=== PATIENT | female | born 1945 | race Caucasian/White ===

== ENCOUNTER 2016-10-24 10:29 | Emergency (ER) | payer MEDICARE, OTHER ==
[~2016-10-24] VITALS: Ht 154.9 cm; Wt 80.9 kg
[~2016-10-24 10:29] MED LIST: ALDACTONE 25MG25 M1 PO; ASPIRIN 81M81 MG/TA2 PO; CELEXA 20MG20 MG/TAB PO; COZAAR100 MG PO; EFFEXOR-XR150 MG PO; FISH OIL500 MG PO; LEVOXYL0.075 MG PO; PREDNISONE10 MG PO; PRIL40 PO; PROAIR HFA0.09 MG/AC IH; TEMOVATE0.05% TP; VERAMYST27.5 MCG/A NS; ZITHROMAX Z PA250 MG PO
[2016-10-24 10:37] VITALS: BP 147/72; PULSE 77; TEMP 98.6
[2016-10-24 11:36] LABS: BASO # 0.1 (0.0-0.2); BASO % 0.7 % (0.0-2.0); EOS # 0.2 (0.0-0.7); GRAN # 4.5 (1.4-6.5); GRAN % 67.3 % (42.2-75.2); HEMATOCRIT 41.5 % (37.0-47.0); HEMOGLOBIN 13.2 g/dl (12.5-16.0); LYMPH # 1.4 (1.2-3.4); LYMPH % 20.8 % (20.0-51.0); MEAN CELL VOLUME 89 fl (80.0-100.0); MEAN CORPUSCULAR HEMOGLOBIN 28 pg (27.0-31.0); MEAN CORPUSCULAR HGB CONC 32 g/dl (33.0-37.0); MEAN PLATELET VOLUME 10.2 fl (7.4-10.4); MONO # 0.5 (0.1-0.6); MONO % 7.9 % (1.7-9.3); PLATELET COUNT 258 K/mm3 (130-400); RED BLOOD COUNT 4.67 M/mm3 (4.10-5.30); REDCELL DISTRIBUTION WIDTH-CV 12.8 % (11.5-14.5); WHITE BLOOD COUNT 6.7 K/mm3 (4.8-10.8)
[2016-10-24 11:46] LABS: ADJUSTED CALCIUM 9.5 mg/dL (8.4-10.2); ALBUMIN 4.5 gm/dL (3.5-5.0); BILIRUBIN,TOTAL 0.6 mg/dL (0.0-1.0); CALCIUM 9.9 mg/dL (8.4-10.2); CREATININE, serum 0.92 mg/dL (0.52-1.25); POTASSIUM 4.2 mmol/L (3.4-5.0); TOTAL PROTEIN 7.5 gm/dL (6.4-8.2)
[2016-10-24 11:53] LABS: PH 5 (5-8); SQUAMOUS EPITHELIAL 0-2 /hpf; URINE APPEARANCE Clear; URINE BACTERIA None Seen /hpf; URINE BILIRUBIN Negative (NEGATIVE); URINE BLOOD Negative (NEGATIVE); URINE COLOR Yellow; URINE GLUCOSE Negative (NEGATIVE); URINE KETONE Negative (NEGATIVE); URINE RBC 0-2 /hpf; URINE UROBILINOGEN Negative (NEGATIVE); URINE WBC 0-2 /hpf
[2016-10-24] MEDS ORDERED: NYSTATIN CREAM15 GM TP (13:15)
== END 2016-10-24 13:22 | disposition home or self-care (01) ==
LOC: COL.ER 10:29
PROVIDERS: Nurse Practitioner
DX: N76.0 Acute vaginitis (principal); I10 Essential (primary) hypertension; R30.0 Dysuria; R35.0 Frequency of micturition; Z87.442 Personal history of urinary calculi

== ENCOUNTER 2016-10-28 08:10 | Inpatient (IN) | payer MEDICARE, OTHER ==
[~2016-10-28] VITALS: Ht 154.9 cm; Wt 88.2 kg
[~2016-10-28 08:10] MED LIST changes: +NYSTATIN CREAM15 GM TP
[2016-10-28 09:31] LABS: HEMATOCRIT 41.9 % (37.0-47.0); HEMOGLOBIN 13.5 g/dl (12.5-16.0); MEAN CELL VOLUME 88 fl (80.0-100.0); MEAN CORPUSCULAR HEMOGLOBIN 28 pg (27.0-31.0); MEAN CORPUSCULAR HGB CONC 32 g/dl (33.0-37.0); MEAN PLATELET VOLUME 10.5 fl (7.4-10.4); PLATELET COUNT 250 K/mm3 (130-400); RED BLOOD COUNT 4.75 M/mm3 (4.10-5.30); WHITE BLOOD COUNT 16.2 K/mm3 (4.8-10.8)
[2016-10-28 09:33] LABS: INR 1.1 (0.8-3.0); PROTHROMBIN TIME 12.6 SECONDS (9.7-12.8)
[2016-10-28 09:38] LABS: ADD PATHOLOGY DIFF REVIEW NO
[2016-10-28 09:41] LABS: ADJUSTED CALCIUM 9.8 mg/dL (8.4-10.2); ALANINE AMINOTRANSFERASE 70 U/L (9-52); ALBUMIN 4.2 gm/dL (3.5-5.0); ALKALINE PHOSPHATASE 110 U/L (50-136); ANION GAP 12 mmol/L (7-16); BILIRUBIN,TOTAL 0.8 mg/dL (0.0-1.0); BLOOD UREA NITROGEN 15 mg/dL (7-17); C-REACTIVE PROTEIN 5.4 mg/dL (0.0-0.9); CARBON DIOXIDE 28 mmol/L (22-30); CHLORIDE 100 mmol/L (98-107); CREATININE, serum 1.03 mg/dL (0.52-1.25); GLUCOSE 120 mg/dL (74-106); LIPASE 69 U/L (23-300); POTASSIUM 4.2 mmol/L (3.4-5.0); SODIUM 139 mmol/L (137-145); TOTAL PROTEIN 7.1 gm/dL (6.4-8.2)
[2016-10-28 09:50] LABS: B-TYPE NATRIURETIC PEPTIDE 67 pg/mL (0-125)
[2016-10-28 09:53] LABS: TROPONIN-I < 0.012 ng/mL (0.000-0.034)
[2016-10-28 10:12] LABS: BAND 22 % (0-10); EOSINOPHIL 6 % (0-4); NEUTROPHILS 63 % (42.0-75.2); PLATELET ESTIMATE NORMAL (NORMAL); TOTAL CELLS COUNTED 100
[2016-10-28 10:30] LABS: ARTERIAL BLD GAS O2 SATURATION 94.9 % (92-100); ARTERIAL BLD GAS TCO2 CT 26.3; ARTERIAL BLOOD GAS BASE EXCESS 0.2 (-2-2); ARTERIAL BLOOD GAS HCO3 25.1 meq/L (22-26); ARTERIAL BLOOD GAS PO2 75.2 mmHg (80-100); ARTERIAL BLOOD GAS PO2T 75.2 (80-100); OXYHEMOGLOBIN 93.7 %
[2016-10-28 10:31] LABS: ALLEN TEST YES; ALLENS TEST RESULT PASS; ATS? YES
[2016-10-28 11:46] LABS: PH 7 (5-8); SQUAMOUS EPITHELIAL 0-2 /hpf; URINE APPEARANCE Clear; URINE BACTERIA Rare /hpf; URINE BILIRUBIN Negative (NEGATIVE); URINE BLOOD Negative (NEGATIVE); URINE COLOR Yellow; URINE GLUCOSE Negative (NEGATIVE); URINE KETONE Negative (NEGATIVE); URINE RBC 0-2 /hpf; URINE UROBILINOGEN Negative (NEGATIVE); URINE WBC 0-2 /hpf
[2016-10-28 14:35] VITALS: BP 125/52; PULSE 91; TEMP 99
[2016-10-28] MEDS ORDERED: MACROBID 1100 MG/CAP PO (18:35)
[2016-10-28] MEDS ORDERED: OMEGA-3 1000 MG1 CAP PO (18:37)
[2016-10-28] MEDS ORDERED: FLONASE NASAL S16 GM NS (18:38)
[2016-10-28] MEDS ORDERED: TRIAMCINOLONE A15 G3 TP (18:59)
[2016-10-28 19:50] VITALS: BP 137/60; PULSE 98
[2016-10-28 19:51] VITALS: TEMP 98.4
[2016-10-28 22:23] VITALS: BP 128/53; PULSE 92; TEMP 98.3
[2016-10-29 02:30] VITALS: BP 134/60; PULSE 91; TEMP 98.1
[2016-10-29 07:57] LABS: BASO % 0.2 % (0.0-2.0); EOS # 0.1 (0.0-0.7); EOS % 0.8 % (0-4.0); GRAN # 15.8 (1.4-6.5); GRAN % 88.7 % (42.2-75.2); LYMPH # 1.2 (1.2-3.4); MEAN CELL VOLUME 89 fl (80.0-100.0); MEAN CORPUSCULAR HGB CONC 32 g/dl (33.0-37.0); MEAN PLATELET VOLUME 10.6 fl (7.4-10.4); MONO # 0.4 (0.1-0.6); MONO % 2.1 % (1.7-9.3); PLATELET COUNT 254 K/mm3 (130-400); RED BLOOD COUNT 4.02 M/mm3 (4.10-5.30); REDCELL DISTRIBUTION WIDTH-CV 13.1 % (11.5-14.5); WHITE BLOOD COUNT 17.8 K/mm3 (4.8-10.8)
[2016-10-29 08:04] LABS: ADJUSTED CALCIUM 9.7 mg/dL (8.4-10.2); ALBUMIN 3.6 gm/dL (3.5-5.0); BILIRUBIN,TOTAL 0.5 mg/dL (0.0-1.0); CALCIUM 9.4 mg/dL (8.4-10.2); POTASSIUM 4.1 mmol/L (3.4-5.0); TOTAL PROTEIN 6.3 gm/dL (6.4-8.2)
[2016-10-29 08:25] LABS: HEMOGLOBIN 11.5 g/dl (12.5-16.0); MEAN CORPUSCULAR HEMOGLOBIN 29 pg (27.0-31.0)
[2016-10-29 08:26] LABS: CREATININE, serum 0.85 mg/dL (0.52-1.25); HEMATOCRIT 35.9 % (37.0-47.0)
[2016-10-29 08:32] VITALS: BP 126/56; PULSE 90; TEMP 98.2
[2016-10-29 11:36] VITALS: BP 158/60; PULSE 105; TEMP 98.2
[2016-10-29 16:54] VITALS: BP 126/53; PULSE 94; TEMP 97.4
[2016-10-29 19:18] VITALS: BP 126/57; PULSE 87; TEMP 98.5
[2016-10-30] VITALS (493 sets, daily range): BP systolic 116–144; BP diastolic 51–80; PULSE 77–93; TEMP 97–98.8; O2SAT 79–100
[2016-10-30 08:11] LABS: MEAN CELL VOLUME 90 fl (80.0-100.0); MEAN CORPUSCULAR HGB CONC 32 g/dl (33.0-37.0); MEAN PLATELET VOLUME 10.8 fl (7.4-10.4); PLATELET COUNT 277 K/mm3 (130-400); RED BLOOD COUNT 3.74 M/mm3 (4.10-5.30); REDCELL DISTRIBUTION WIDTH-CV 13.6 % (11.5-14.5)
[2016-10-30 08:16] LABS: ADD PATHOLOGY DIFF REVIEW NO; HEMATOCRIT 33.7 % (37.0-47.0); HEMOGLOBIN 10.7 g/dl (12.5-16.0); MEAN CORPUSCULAR HEMOGLOBIN 29 pg (27.0-31.0); WHITE BLOOD COUNT 21.8 K/mm3 (4.8-10.8)
[2016-10-30 08:32] LABS: CALCIUM 9.6 mg/dL (8.4-10.2); CREATININE, serum 0.91 mg/dL (0.52-1.25); POTASSIUM 3.8 mmol/L (3.4-5.0)
[2016-10-30 08:34] LABS: C-REACTIVE PROTEIN 3.7 mg/dL (0.0-0.9)
[2016-10-30 10:35] LABS: ANISOCYTOSIS 1+; BAND 11 % (0-10); HYPOCHROMIA 1+; NEUTROPHILS 65 % (42.0-75.2); PLATELET ESTIMATE NORMAL (NORMAL); TOTAL CELLS COUNTED 100
[2016-10-30 10:54] LABS: ARTERIAL BLD GAS O2 SATURATION 89.9 % (92-100); ARTERIAL BLOOD GAS BASE EXCESS -0.7 (-2-2); ARTERIAL BLOOD GAS HCO3 23.8 meq/L (22-26); ARTERIAL BLOOD GAS PHT 7.41 C (7.35-7.45); ARTERIAL BLOOD GAS PO2 57.3 mmHg (80-100); ARTERIAL BLOOD GAS PO2T 57.3 (80-100); ARTERIAL BLOOD GAS pH 7.41 (7.35-7.45); ATS? YES; OXYHEMOGLOBIN 89.1 %
[2016-10-31 03:47] VITALS: BP 134/69; PULSE 78; TEMP 98.5
[2016-10-31 05:23] LABS: BASO % 0.2 % (0.0-2.0); GRAN # 15.7 (1.4-6.5); GRAN % 80.2 % (42.2-75.2); LYMPH # 2.8 (1.2-3.4); LYMPH % 14.2 % (20.0-51.0); MEAN CELL VOLUME 88 fl (80.0-100.0); MEAN CORPUSCULAR HGB CONC 32 g/dl (33.0-37.0); MEAN PLATELET VOLUME 10.2 fl (7.4-10.4); MONO # 0.8 (0.1-0.6); MONO % 4.2 % (1.7-9.3); PLATELET COUNT 253 K/mm3 (130-400); RED BLOOD COUNT 3.72 M/mm3 (4.10-5.30); REDCELL DISTRIBUTION WIDTH-CV 13.2 % (11.5-14.5); WHITE BLOOD COUNT 19.5 K/mm3 (4.8-10.8)
[2016-10-31 05:24] LABS: HEMATOCRIT 32.9 % (37.0-47.0); HEMOGLOBIN 10.6 g/dl (12.5-16.0); MEAN CORPUSCULAR HEMOGLOBIN 28 pg (27.0-31.0)
[2016-10-31 05:40] LABS: ADJUSTED CALCIUM 10.1 mg/dL (8.4-10.2); ALBUMIN 3.4 gm/dL (3.5-5.0); BILIRUBIN,TOTAL 0.6 mg/dL (0.0-1.0); CALCIUM 9.6 mg/dL (8.4-10.2); CREATININE, serum 0.82 mg/dL (0.52-1.25); MAGNESIUM 1.9 mg/dL (1.6-2.3); PHOSPHOROUS 3.3 mg/dL (2.5-4.5); TOTAL PROTEIN 5.9 gm/dL (6.4-8.2)
[2016-10-31 08:00] VITALS: BP 152/77; PULSE 74; TEMP 98.2
[2016-10-31 12:57] VITALS: BP 173/69; PULSE 80; TEMP 98.2
[2016-10-31 16:00] VITALS: BP 159/74; PULSE 85; TEMP 98.7
[2016-10-31 20:06] VITALS: BP 123/94; PULSE 94; TEMP 98.9
[2016-11-01] VITALS (689 sets, daily range): BP systolic 113–168; BP diastolic 64–87; PULSE 69–84; TEMP 97.4–99.9; O2SAT 66–100
[2016-11-01 06:07] LABS: BASO % 0.2 % (0.0-2.0); GRAN # 13.6 (1.4-6.5); GRAN % 77.6 % (42.2-75.2); LYMPH # 2.5 (1.2-3.4); LYMPH % 14.5 % (20.0-51.0); MEAN CELL VOLUME 89 fl (80.0-100.0); MEAN CORPUSCULAR HGB CONC 32 g/dl (33.0-37.0); MEAN PLATELET VOLUME 10.7 fl (7.4-10.4); MONO # 1.1 (0.1-0.6); PLATELET COUNT 272 K/mm3 (130-400); RED BLOOD COUNT 3.63 M/mm3 (4.10-5.30); REDCELL DISTRIBUTION WIDTH-CV 13.2 % (11.5-14.5); WHITE BLOOD COUNT 17.5 K/mm3 (4.8-10.8)
[2016-11-01 06:14] LABS: HEMATOCRIT 32.2 % (37.0-47.0); HEMOGLOBIN 10.4 g/dl (12.5-16.0); MEAN CORPUSCULAR HEMOGLOBIN 29 pg (27.0-31.0)
[2016-11-01 06:22] LABS: C-REACTIVE PROTEIN 2.7 mg/dL (0.0-0.9); CALCIUM 9.4 mg/dL (8.4-10.2); CREATININE, serum 0.8 mg/dL (0.52-1.25); MAGNESIUM 1.9 mg/dL (1.6-2.3); PHOSPHOROUS 3.6 mg/dL (2.5-4.5)
[2016-11-02] VITALS (831 sets, daily range): BP systolic 132–180; BP diastolic 75–88; PULSE 67–83; TEMP 97.6–98.6; O2SAT 37–100
[2016-11-02 05:38] LABS: BASO % 0.1 % (0.0-2.0); EOS % 0.1 % (0-4.0); GRAN # 12.6 (1.4-6.5); GRAN % 78.3 % (42.2-75.2); LYMPH # 2.2 (1.2-3.4); LYMPH % 13.8 % (20.0-51.0); MEAN CELL VOLUME 88 fl (80.0-100.0); MEAN CORPUSCULAR HGB CONC 32 g/dl (33.0-37.0); MEAN PLATELET VOLUME 10.5 fl (7.4-10.4); MONO # 0.9 (0.1-0.6); MONO % 5.8 % (1.7-9.3); PLATELET COUNT 278 K/mm3 (130-400); RED BLOOD COUNT 3.84 M/mm3 (4.10-5.30)
[2016-11-02 05:40] LABS: HEMATOCRIT 33.7 % (37.0-47.0); HEMOGLOBIN 10.9 g/dl (12.5-16.0); MEAN CORPUSCULAR HEMOGLOBIN 28 pg (27.0-31.0)
[2016-11-02 05:43] LABS: CALCIUM 9.2 mg/dL (8.4-10.2); CREATININE, serum 0.75 mg/dL (0.52-1.25); PHOSPHOROUS 3.4 mg/dL (2.5-4.5); POTASSIUM 3.8 mmol/L (3.4-5.0)
[2016-11-03 03:56] VITALS: BP 149/74; PULSE 73; TEMP 98.1
[2016-11-03 07:42] VITALS: BP 178/85; PULSE 74; TEMP 98.4
[2016-11-03 12:34] VITALS: BP 178/85; PULSE 74; TEMP 98.4
== END 2016-11-03 13:43 | DRG 189 ==
LOC: COL.ER 08:10 → PEDS 11:57 → MEDICAL 11:57 → PEDS 14:26 → ICU 10-30 10:12 → IMCU 10-30 20:19 → MEDICAL 11-02 20:17
PROVIDERS: Emergency Medicine; Internal Medicine; Internal Medicine Pulmonary Disease; Nurse Practitioner Family
PROC: 02HV33Z Insertion of Infusion Device into Superior Vena Cava, Percutaneous Approach (ICD-10-PCS; principal; 2016-10-30)
DX: J96.01 Acute respiratory failure with hypoxia (principal); I10 Essential (primary) hypertension; I08.0 Rheumatic disorders of both mitral and aortic valves; J84.112 Idiopathic pulmonary fibrosis; T59.811A Toxic effect of smoke, accidental (unintentional), initial encounter; J70.5 Respiratory conditions due to smoke inhalation; N30.10 Interstitial cystitis (chronic) without hematuria; I27.2 Other secondary pulmonary hypertension
CPT/HCPCS: 99223-AI; 99232-AI; 99233-AI; 99239; C1751; J0456; J0692; J1650; J1940; J1956; J2060; J2920; J3370; J7030; J7050; J7512; Q9967

== ENCOUNTER 2016-11-14 02:44 | Emergency (ER) | payer MEDICARE, OTHER ==
[~2016-11-14] VITALS: Ht 154.9 cm; Wt 84.1 kg
[~2016-11-14 02:44] MED LIST changes: +FLONASE NASAL S16 GM NS; +MACROBID 1100 MG/CAP PO; +OMEGA-3 1000 MG1 CAP PO; +TRIAMCINOLONE A15 G3 TP
[2016-11-14 02:47] VITALS: TEMP 98.7
[2016-11-14 03:17] LABS: PH 6 (5-8); SQUAMOUS EPITHELIAL None Seen /hpf; URINE APPEARANCE Clear; URINE BACTERIA None Seen /hpf; URINE BILIRUBIN Negative (NEGATIVE); URINE BLOOD Negative (NEGATIVE); URINE COLOR Yellow; URINE GLUCOSE Negative (NEGATIVE); URINE KETONE Negative (NEGATIVE); URINE RBC 0-2 /hpf; URINE UROBILINOGEN Negative (NEGATIVE); URINE WBC 0-2 /hpf
[2016-11-14 03:41] LABS: BASO % 0.1 % (0.0-2.0); EOS % 0.2 % (0-4.0); GRAN # 11.3 (1.4-6.5); GRAN % 78.3 % (42.2-75.2); HEMATOCRIT 38.6 % (37.0-47.0); HEMOGLOBIN 12.4 g/dl (12.5-16.0); LYMPH % 13.8 % (20.0-51.0); MEAN CELL VOLUME 90 fl (80.0-100.0); MEAN CORPUSCULAR HEMOGLOBIN 29 pg (27.0-31.0); MEAN CORPUSCULAR HGB CONC 32 g/dl (33.0-37.0); PLATELET COUNT 344 K/mm3 (130-400); RED BLOOD COUNT 4.31 M/mm3 (4.10-5.30); REDCELL DISTRIBUTION WIDTH-CV 13.9 % (11.5-14.5); WHITE BLOOD COUNT 14.4 K/mm3 (4.8-10.8)
[2016-11-14] MEDS ORDERED: COZAAR 25MG25 MG/TAB PO (03:45)
[2016-11-14] MEDS ORDERED: EPA FISH OIL1000 MG PO (03:45)
[2016-11-14] MEDS ORDERED: ASPIRIN 81M81 MG/TA2 PO (03:46)
[2016-11-14] MEDS ORDERED: LEXAPRO 10MG10 MG PO (03:46)
[2016-11-14] MEDS ORDERED: PREDNISONE10 MG PO (03:47)
[2016-11-14] MEDS ORDERED: PEPCID AC20 MG PO (03:48)
[2016-11-14] MEDS ORDERED: NAPROSYN 2250 MG/TAB PO (03:48)
[2016-11-14] MEDS ORDERED: ALBUTEROL SULFAT3 M3 IH (03:48)
[2016-11-14] MEDS ORDERED: MIRALAX119G PO (03:49)
[2016-11-14] MEDS ORDERED: SENOKOT8.6 MG PO (03:49)
[2016-11-14 03:50] LABS: ADJUSTED CALCIUM 9.9 mg/dL (8.4-10.2); ALBUMIN 3.7 gm/dL (3.5-5.0); BILIRUBIN,TOTAL 0.6 mg/dL (0.0-1.0); CALCIUM 9.7 mg/dL (8.4-10.2); CREATININE, serum 0.94 mg/dL (0.52-1.25); POTASSIUM 4.3 mmol/L (3.4-5.0); TOTAL PROTEIN 6.6 gm/dL (6.4-8.2)
[2016-11-14] MEDS ORDERED: EFFEXOR-XR150 MG PO (03:50)
[2016-11-14] MEDS ORDERED: SYNTHROID0.075 MG/T PO (03:50)
[2016-11-14] MEDS ORDERED: ALDACTONE 25MG25 M1 PO (03:51)
[2016-11-14 06:04] VITALS: BP 144/69; PULSE 75
== END 2016-11-14 06:11 | disposition home or self-care (01) ==
LOC: COL.ER 02:44
PROVIDERS: Emergency Medicine
DX: K59.00 Constipation, unspecified (principal); F32.9 Major depressive disorder, single episode, unspecified; I10 Essential (primary) hypertension; K21.9 Gastro-esophageal reflux disease without esophagitis
CPT/HCPCS: J7030; Q9967

== ENCOUNTER → 2019-05-03 | Outpatient (CLI) | payer MEDICARE ==
[~2019-05-03] MED LIST changes: +ALBUTEROL SULFAT3 M3 IH; +COZAAR 25MG25 MG/TAB PO; +EPA FISH OIL1000 MG PO; +LEXAPRO 10MG10 MG PO; +MIRALAX119G PO; +NAPROSYN 2250 MG/TAB PO; +PEPCID AC20 MG PO; +SENOKOT8.6 MG PO; +SYNTHROID0.075 MG/T PO
== END ==
LOC: COL.RAD 05-02 13:15
DX: Z01.812 Encounter for preprocedural laboratory examination (principal); R42 Dizziness and giddiness; H91.20 Sudden idiopathic hearing loss, unspecified ear
CPT/HCPCS: A9585

== ENCOUNTER 2019-09-07 11:00 | Outpatient (RCR) | payer MEDICARE ==
[2019-08-09 18:34] VITALS: BP 140/78; PULSE 86
[2019-08-10 08:20] VITALS: BP 137/67; TEMP 98.1
[2019-08-10 18:14] VITALS: BP 121/94; PULSE 80; TEMP 98.6
[2019-08-11 07:22] VITALS: BP 158/59; PULSE 95; TEMP 97.5
[2019-08-12 07:07] VITALS: BP 1473/71; PULSE 91; TEMP 97.9
[2019-08-13 07:09] VITALS: BP 129/66; PULSE 87; TEMP 98.3
[2019-08-13 18:16] VITALS: BP 168/69; PULSE 82; TEMP 97.9
[2019-08-14 08:44] VITALS: BP 119/67; PULSE 98; TEMP 98
[2019-08-14 18:21] VITALS: BP 133/66; PULSE 90; TEMP 98.1
[2019-08-15 07:17] VITALS: BP 134/73; PULSE 68; TEMP 98.5
[2019-08-15 18:20] VITALS: BP 149/71; PULSE 92; TEMP 98.2
[2019-08-16 07:10] VITALS: BP 141/62; PULSE 111; TEMP 97.9
[2019-08-16 18:15] VITALS: BP 142/61; PULSE 108; TEMP 97.8
[2019-08-17 07:48] VITALS: BP 146/84; PULSE 110; TEMP 98.1
[2019-08-17 18:53] VITALS: BP 142/82; PULSE 111; TEMP 98.6
[2019-08-20 10:14] VITALS: BP 154/80; PULSE 116; TEMP 97.5
--- NOTE | 2019-08-20 10:30 | NUR ---
Here for cares. with sterile technique right upper arm PICC dressing change done with insertion site cleansed with chloraprep x 1, chlorhexidine impregnated disk applied, skin prep, stat lock, and tegaderm applied. no signs or symptoms of IV complications noted. no concerns voiced. to return next week for cares. voiced understanding of instructions.
[2019-08-27 12:03] VITALS: BP 134/73; PULSE 110; TEMP 98.2
--- NOTE | 2019-08-27 12:10 | NUR ---
PICC intact right upper arm. With sterile technique right upper arm PICC dressing change done with insertion site cleansed with ChloraPrep 1, chlorhexidine impregnated disc applied, skin prep, StatLock, and Tegaderm applied. Changed and port flushed with 10 mL normal saline with good blood return noted. No signs or symptoms of IV complications noted. No concerns voiced. Patient to return next after doctor appointment. Voiced understanding of instructions.
[2019-09-03 13:03] VITALS: BP 133/72; PULSE 108; TEMP 97.9
[~2019-09-07] VITALS: Ht 154.9 cm; Wt 78.0 kg
[~2019-09-07 11:00] MED LIST changes: +ASPIRIN E.C. 8181 MG PO; +BACTRIM DS 8001 TAB PO; +BIOTIN10000 MC1 PO; +CALCIUM CARBON650 M2 PO; +CELLCEPT 5500 MG/TAB PO; -COZAAR 25MG25 MG/TAB PO; +CRANBERRY500 M3 PO; +EFFEXOR XR75 MG/CAP PO; +FLONASEALLERGY NS; +FORTAMET500 M1 PO; +GAMMAGARD LIQ30 IV; +LIDOCAINE TOP; +MASON NATURAL2000 IU PO; +MUCUS RELIEF1200 MG PO; +MYCELEX10 MG/TAB MM; +NATURAL E400 IU PO; +NORVASC 5MG5 MG/TAB PO; +PRAVACHOL 20MG20 MG PO; +PREDNISONE 5MG5 MG PO; +PRILOCAINE TOP; +PROGRAF 1MG1 MG PO; +PROTONIX 40MG T40 MG PO; +PROVIGIL200 MG PO; +REQUIP0.25 MG PO; +SINGULAIR 110 MG/TAB PO; -SYNTHROID0.075 MG/T PO; +SYNTHROID0.088 MG/T PO; +TUMERIC PO; +TYLENOL 500MG500 MG PO; +VITAMIN C500 MG; +VOLTAREN GEL 1%1 TU TP; +WOMEN'S DAILY1 TAB PO; +ZOFRAN 4MG T4 MG/TAB PO; +ZOVIRAX 200MG200 MG PO; +ZYRTEC 10MG10 MG PO
[2019-09-07 11:23] VITALS: BP 182/76; PULSE 90; TEMP 99.1
== END 2019-09-07 11:30 | disposition home or self-care (01) ==
LOC: EUO 11:00
DX: N39.0 Urinary tract infection, site not specified (principal); Z95.828 Presence of other vascular implants and grafts
CPT/HCPCS: A4216; C1751; C1892; J0692

== ENCOUNTER → 2021-08-17 | Outpatient (RCR) | payer MEDICARE | END | disposition home or self-care (01) | LOC: COL.CR | DX: Z48.812 Encounter for surgical aftercare following surgery on the circulatory system (principal); Z95.5 Presence of coronary angioplasty implant and graft ==

== ENCOUNTER 2021-09-09 14:30 | Outpatient (RCR) | payer MEDICARE | END 2021-09-14 | disposition home or self-care (01) | LOC: COL.CR | DX: Z48.812 Encounter for surgical aftercare following surgery on the circulatory system (principal); Z95.5 Presence of coronary angioplasty implant and graft ==

== ENCOUNTER 2021-09-13 12:39 | Emergency (ER) | payer MEDICARE ==
[~2021-09-13] VITALS: Ht 154.9 cm; Wt 79.5 kg
[2021-09-13 12:44] VITALS: TEMP 98
[2021-09-13 13:25] LABS: BASO % 0.5 % (0.0-2.0); EOS % 0.4 % (0.0-4.0); GRAN # 6.9 K/mm3 (1.4-6.5); GRAN % 84.1 % (42.2-75.2); HEMOGLOBIN 11.4 g/dl (12.5-16.0); LYMPH # 0.6 K/mm3 (1.2-3.4); LYMPH % 7.4 % (20.0-51.0); MEAN CELL VOLUME 91 fl (80.0-100.0); MEAN CORPUSCULAR HEMOGLOBIN 30 pg (27-31); MEAN CORPUSCULAR HGB CONC 33 g/dl (33.0-37.0); MEAN PLATELET VOLUME 10.3 fl (7.4-10.4); MONO # 0.6 K/mm3 (0.1-0.6); MONO % 7.4 % (1.7-9.3); PLATELET COUNT 245 K/mm3 (130-400); RED BLOOD COUNT 3.81 M/mm3 (4.10-5.30); REDCELL DISTRIBUTION WIDTH-CV 13.8 % (11.5-14.5)
[2021-09-13 13:27] LABS: HEMATOCRIT 34.5 % (37.0-47.0)
[2021-09-13 13:47] LABS: ALBUMIN 3.8 gm/dL (3.4-4.8); BILIRUBIN,TOTAL 0.3 mg/dL (0.2-1.2); CALCIUM 9.6 mg/dL (8.4-10.2); CREATININE, serum 1.21 mg/dL (0.57-1.11); POTASSIUM 3.9 mmol/L (3.5-4.5); TOTAL PROTEIN 6.7 gm/dL (6.2-8.1)
[2021-09-13 13:53] LABS: TROPONIN-I 0.023 ng/mL (0.00-0.033)
[2021-09-13 14:14] VITALS: BP 108/68; PULSE 80
== END 2021-09-13 14:35 | disposition home or self-care (01) ==
LOC: COL.ER 12:39
PROVIDERS: Student in an Organized Health Care Education/Training Program
DX: R07.89 Other chest pain (principal); Z86.79 Personal history of other diseases of the circulatory system; Z95.5 Presence of coronary angioplasty implant and graft; Z94.2 Lung transplant status

== ENCOUNTER 2021-10-05 14:28 | Outpatient (RCR) | payer MEDICARE | END 2021-10-15 | disposition home or self-care (01) | LOC: COL.CR | DX: Z48.812 Encounter for surgical aftercare following surgery on the circulatory system (principal); Z95.5 Presence of coronary angioplasty implant and graft ==

== ENCOUNTER 2021-11-11 15:07 | Outpatient (RCR) | payer MEDICARE ==
[2021-11-12] MEDS ORDERED: ZITHROMAX500 M2 PO (10:03)
[2021-11-12] MEDS ORDERED: HCTZ 25MG TAB25 MG PO (10:03)
[2021-11-12] MEDS ORDERED: NORVASC2.5 MG PO (10:04)
[2021-11-12] MEDS ORDERED: LASIX 20MG TABL20 MG PO (10:05)
[2021-11-12] MEDS ORDERED: PLAVIX 75MG TAB75 MG PO (10:05)
[2021-11-12] MEDS ORDERED: KLOR-CON 1010 MEQ (10:07)
[2021-11-12] MEDS ORDERED: MAG-OX 400400 MG/TAB PO (10:09)
[2021-11-12] MEDS ORDERED: WELLBUTRIN XL150 MG PO (10:09)
[2021-11-12] MEDS ORDERED: COREG 6.256.25 MG/TA PO (10:12)
[2021-11-12] MEDS ORDERED: CRESTOR 10MG10 MG (10:12)
[2021-11-12] MEDS ORDERED: CLARITIN 1010 MG/TAB (10:13)
[2021-11-12] MEDS ORDERED: ATROVENT INHALE14 GM IH (10:16)
[2021-11-12] MEDS ORDERED: ATROVENTNS0.03% NAS (10:22)
[2021-11-12] MEDS ORDERED: THE MEDICINE S200 M2 PO (10:29)
[2021-11-12] MEDS ORDERED: D-MANNOSE PO (10:34)
[2021-11-12] MEDS ORDERED: NITROSTAT0.4 MG/TAB SL (11:14)
[2021-11-12] MEDS ORDERED: ANTIVERT 25MG25 MG PO (11:16)
[2021-11-12] MEDS ORDERED: AMOXICILLIN 50500 MG PO (11:17)
[2021-11-12] MEDS ORDERED: NYSTATIN OR100 MU/ML (11:19)
[2021-11-12] MEDS ORDERED: ESTRACE0.1 MG/GM (11:21)
[2021-11-12] MEDS ORDERED: ASTELIN NASAL S34 ML NS (11:23)
[2021-11-12] MEDS ORDERED: PHENERGAN 25 TA25 MG PO (11:31)
[2021-11-12] MEDS ORDERED: VITAMIN B COMPL1 SGL PO (11:32)
[2021-11-12] MEDS ORDERED: NATURAL FISH1200 MG (11:32)
== END 2021-11-11 15:15 | disposition home or self-care (01) ==
LOC: COL.CR 15:07
DX: Z48.812 Encounter for surgical aftercare following surgery on the circulatory system (principal); Z95.5 Presence of coronary angioplasty implant and graft

== ENCOUNTER 2021-11-12 08:03 | Outpatient (RCR) | payer MEDICARE ==
[~2021-11-12] VITALS: Ht 154.9 cm; Wt 77.7 kg
[2021-11-12 08:19] VITALS: BP 109/68; PULSE 97; TEMP 97.6
[2021-11-12 09:50] VITALS: BP 133/75; PULSE 76
--- NOTE | 2021-11-12 09:53 | NUR ---
pt tolerated injections without complication. Pt remained in observation for one hour after injections. VSS. Pt ambulated out of unit at discharge without problem.
[2021-11-12] MEDS ORDERED: HCTZ 25MG TAB25 MG PO (10:03)
[2021-11-12] MEDS ORDERED: ZITHROMAX500 M2 PO (10:03)
[2021-11-12] MEDS ORDERED: NORVASC2.5 MG PO (10:04)
[2021-11-12] MEDS ORDERED: PLAVIX 75MG TAB75 MG PO (10:05)
[2021-11-12] MEDS ORDERED: LASIX 20MG TABL20 MG PO (10:05)
[2021-11-12] MEDS ORDERED: KLOR-CON 1010 MEQ (10:07)
[2021-11-12] MEDS ORDERED: MAG-OX 400400 MG/TAB PO (10:09)
[2021-11-12] MEDS ORDERED: WELLBUTRIN XL150 MG PO (10:09)
[2021-11-12] MEDS ORDERED: COREG 6.256.25 MG/TA PO (10:12)
[2021-11-12] MEDS ORDERED: CRESTOR 10MG10 MG (10:12)
[2021-11-12] MEDS ORDERED: CLARITIN 1010 MG/TAB (10:13)
[2021-11-12] MEDS ORDERED: ATROVENT INHALE14 GM IH (10:16)
[2021-11-12] MEDS ORDERED: ATROVENTNS0.03% NAS (10:22)
[2021-11-12] MEDS ORDERED: THE MEDICINE S200 M2 PO (10:29)
[2021-11-12] MEDS ORDERED: D-MANNOSE PO (10:34)
[2021-11-12] MEDS ORDERED: NITROSTAT0.4 MG/TAB SL (11:14)
[2021-11-12] MEDS ORDERED: ANTIVERT 25MG25 MG PO (11:16)
[2021-11-12] MEDS ORDERED: AMOXICILLIN 50500 MG PO (11:17)
[2021-11-12] MEDS ORDERED: NYSTATIN OR100 MU/ML (11:19)
[2021-11-12] MEDS ORDERED: ESTRACE0.1 MG/GM (11:21)
[2021-11-12] MEDS ORDERED: ASTELIN NASAL S34 ML NS (11:23)
[2021-11-12] MEDS ORDERED: PHENERGAN 25 TA25 MG PO (11:31)
[2021-11-12] MEDS ORDERED: NATURAL FISH1200 MG (11:32)
[2021-11-12] MEDS ORDERED: VITAMIN B COMPL1 SGL PO (11:32)
== END 2021-11-12 10:00 | disposition home or self-care (01) ==
LOC: EUO 08:03
DX: Z23 Encounter for immunization (principal); Z51.81 Encounter for therapeutic drug level monitoring
CPT/HCPCS: M0220; Q0221